=== PATIENT | male | born 1995 ===

== ENCOUNTER 2016-10-28 04:17 | Emergency (ER) | payer SELFPAY ==
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
== END 2016-10-28 04:28 | disposition disaster alternative care site (69) ==
LOC: GMED 04:17
DX: F10.129 Alcohol abuse with intoxication, unspecified (principal); V47.5XXA Car driver injured in collision with fixed or stationary object in traffic accident, initial encounter; W22.11XA Striking against or struck by driver side automobile airbag, initial encounter; Y92.411 Interstate highway as the place of occurrence of the external cause